=== PATIENT | male | born 1980 | race Two or more races ===

== ENCOUNTER 2017-07-19 22:49 | Emergency (ER) | payer SELFPAY ==
[2017-07-19 22:55] VITALS: BMI 29.7
[2017-07-19 22:59] VITALS: BP 148/94; PULSE 86; RESP 18; TEMP 98.3; O2SAT 98
[2017-07-19] MEDS ORDERED: Lidocaine 1% Inj (20ml) IJ ONE (23:05)
[2017-07-19] MEDS ORDERED: Tdap Vaccine 0.5 ml Vial (10-64 yrs) IM ONE ×2 (23:05→23:20)
--- NOTE | 2017-07-19 23:20 | ED PDOC ---
HPI: General Adult Time Seen by Provider: 07/19/17 22:55 Chief Complaint (Nursing): Abnormal Skin Integrity History Per: Patient Additional Complaint(s): Pt. states earlier today a pocket knife accidentally fell on his R foot causing a laceration. Denies numbness, tingling, FB sensation, other injury. Past Medical History Reviewed: Historical Data, Nursing Documentation, Vital Signs Vital Signs: Last Vital Signs Temp 98.3 F 07/19/17 22:56 Pulse 86 07/19/17 22:56 Resp 18 07/19/17 22:56 BP 148/94 H 07/19/17 22:56 Pulse Ox 98 07/19/17 23:20 - Surgical History Surgical History: No Surg Hx - Family History Family History: States: No Known Family Hx - Allergies Allergies/Adverse Reactions: Allergies Allergy/AdvReac Type Severity Reaction Status Date / Time No Known Allergies Allergy Verified 07/19/17 22:55 Review of Systems ROS Statement: Except As Marked, All Systems Reviewed And Found Negative Physical Exam - Physical Exam Appears: Positive for: Well, Non-toxic, No Acute Distress Skin: Positive for: Normal Color, Warm. Negative for: Rash Pulses-Dorsalis Pedis (R): 2+ Extremity: Positive for: Normal ROM, Other (R dorsal foot with 1.5cm superficial linear laceration without active bleeding ) - ECG O2 Sat by Pulse Oximetry: 98 Procedures - Time-Out Type of Procedure: Laceration repair Site of Procedure: R foot Correct Patient (with visual ID + MR# on ID Band): Yes Correct Procedure: Yes PA/Tech: Jocelyne - Laceration/Wound Repair Laceration repair Wound Length (cm): 1 Wound's Depth, Shape: superficial Wound Explored: clean Irrigated w/ Saline (ccs): 250 Betadine Prep?: Yes Anesthesia: 1% Lidocaine Volume Anesthetic (ccs): 3 Wound Repaired With: Sutures Suture Size/Type: 4:0, proline Number of Sutures: 3 Layer Closure?: No Wound Complexity: Simple Disposition - Clinical Impression Clinical Impression: Foot laceration - Patient ED Disposition Is Patient to be Admitted: No - Disposition Referrals: Allyssa Russ [Outside] Disposition: Routine/Home Disposition Time: 23:57 Condition: STABLE Additional Instructions: Suture removal in 7 days. Return to ED immediately if swelling, redness, or discharge develops. Instructions: Laceration Repair Forms: [employer] Chintan (Emirati) Print Language: [id number]
[2017-07-19] MEDS ORDERED: Lidocaine 1% PF (5ml) Amp INJ ONE (23:30)
[2017-07-19] MEDS ORDERED: Povidone Iodine Topical 10% Sol ONE (23:37)
[2017-07-19] MEDS ORDERED: Bacitracin 500 Units/gm Oint Foilpak UD ONE (23:55)
[2017-07-19] MEDS ORDERED: Bacitracin OINT 15GM TOP STA (23:55)
== END 2017-07-20 00:02 | disposition home or self-care (01) ==
LOC: H.ER 22:49
DX: S91.311A Laceration without foreign body, right foot, initial encounter (principal); W20.8XXA Other cause of strike by thrown, projected or falling object, initial encounter; Z23 Encounter for immunization